=== PATIENT | female | born 1990 | race Caucasian/White ===

== ENCOUNTER 2019-10-12 15:14 | Emergency (ER) | payer OTHER ==
[~2019-10-12] VITALS: Ht 154.9 cm; Wt 99.8 kg
[2019-10-12] MEDS ORDERED: ACYCLOVIR400 MG PO (15:23)
[2019-10-12] MEDS ORDERED: PRENATA CHEWAB1 EACH PO (15:24)
[2019-10-12] MEDS ORDERED: TRIAMCINOLONE A80 GM TOP (16:14)
== END 2019-10-12 16:23 | disposition home or self-care (01) ==
LOC: ED 15:14
DX: O26.86 Pruritic urticarial papules and plaques of pregnancy (PUPPP) (principal); O99.333 Smoking (tobacco) complicating pregnancy, third trimester; F17.200 Nicotine dependence, unspecified, uncomplicated; Z3A.39 39 weeks gestation of pregnancy
CPT/HCPCS: 99282

== ENCOUNTER 2019-10-20 21:39 | Inpatient (IN) | payer OTHER ==
[~2019-10-20] VITALS: Ht 154.9 cm; Wt 120.2 kg
[~2019-10-20 21:39] MED LIST: ACYCLOVIR400 MG PO; PRENATA CHEWAB1 EACH PO; TRIAMCINOLONE A80 GM TOP
--- NOTE | 2019-10-21 13:06 | PR ---
[facility] [address] [facility] [place] [address] Signed PP Progress Notes Datetime Report Generated by CPN: 10/21/2019 13:06 SUBJECTIVE: [id number] Pain: Within Normal Limits Nausea/Vomiting: Denies Vital Signs: [id number] Vital Signs: Reviewed; Within Normal Limits Notable Details: PP Hgb/HCt = 12.5/37.3 EXAM: Ongoing Abdomen/Uterus: Normal Lochia: Normal Extremities: Normal IMPRESSION/PLAN/PROCEDURES: [id number] Impression: Normal Progression Plan: Continue Present Management Procedures: None Progress Notes: Doing well, without complaint. Signing Physician: Ezra Ford MD Copies: ~ *Electronically Signed* 10/21/19 1306 EZRA FORD MD PATIENT NAME: ROSITA REIS PROGRESS NOTE DATE OF : [birth year] PHYSICIAN: EZRA FORD MD RPT #: [id number] REPORT IS CONFIDENTIAL AND NOT TO BE RELEASED WITHOUT AUTHORIZATION
--- NOTE | 2019-10-22 12:22 | PR ---
[facility] [address] [facility] [place] [address] Signed PP Progress Notes Datetime Report Generated by CPN: 10/22/2019 12:22 SUBJECTIVE: [id number] Pain: Within Normal Limits Nausea/Vomiting: Denies Vital Signs: [id number] Vital Signs: Reviewed; Within Normal Limits Notable Details: PP Hgb/HCt = 12.5/37.3 EXAM: Ongoing Abdomen/Uterus: Normal Lochia: Normal Extremities: Normal IMPRESSION/PLAN/PROCEDURES: [id number] Impression: Normal Progression Plan: Discharge Procedures: None Progress Notes: Doing well, without complaint, ready to go home. Signing Physician: Ezra Ford MD Copies: ~ *Electronically Signed* 10/22/19 1222 EZRA FORD MD PATIENT NAME: ROSITA REIS PROGRESS NOTE DATE OF : 90 PHYSICIAN: EZRA FORD MD RPT #: [id number] REPORT IS CONFIDENTIAL AND NOT TO BE RELEASED WITHOUT AUTHORIZATION
== END 2019-10-22 13:03 | disposition home or self-care (01) | DRG 806 ==
LOC: FBC 21:50
PROVIDERS: ADMIT General Practice
PROC: 10E0XZZ Delivery of Products of Conception, External Approach (ICD-10-PCS; principal; 2019-10-20)
PROC: 0HQ9XZZ Repair Perineum Skin, External Approach (ICD-10-PCS; 2019-10-20)
PROC: 0UQMXZZ Repair Vulva, External Approach (ICD-10-PCS; 2019-10-20)
DX: O62.3 Precipitate labor (principal); O98.32 Other infections with a predominantly sexual mode of transmission complicating childbirth; Z37.0 Single live birth; Z3A.40 40 weeks gestation of pregnancy; O70.0 First degree perineal laceration during delivery; O71.82 Other specified trauma to perineum and vulva; O69.2XX0 Labor and delivery complicated by other cord entanglement, with compression, not applicable or unspecified; A60.09 Herpesviral infection of other urogenital tract
CPT/HCPCS: 36415; 85027; A9270

== ENCOUNTER 2020-09-08 08:30 | Day surgery (SDC) | payer OTHER ==
[~2020-09-08] VITALS: Ht 154.9 cm; Wt 97.7 kg
--- NOTE | 2020-09-08 11:02 | NUR ---
09/08/20 1102 Kori Morrison 1054-PATIENT ARRIVED TO PACU ON 6L MASK RN DOING JAW THRUST TO MAINTAIN OPEN AIRWAY. ORAL AIRWAY IN PLACE. SUTURES IN PLACE TO LEFT NECK SMALL AMT OF DRAINAGE TO LEFT EAR, CLEANED OUT. 1058-PATIENT AROUSING OPENING EYES ORAL AIRWAY REMOVED MAINTAINING OWN AIRWAY. PATIENT DENIES PAIN OR NAUSEA. 1100-PATIENT AWAKE HOB ELEVATED ON RA. 99% RR EVEN. DENIES PAIN OR NAUSEA. NO MORE DRAINAGE TO LEFT EAR.
--- NOTE | 2020-09-08 11:30 | NUR ---
PT IS BACK TO DS FROM PACU. SHE IS DENYING ANY PAIN. SHE WOULD LIKE CHOCOLATE PUDDING. TOLERATING SIPS OF WATER. CALL LIGHT WITHIN REACH. NO ADDITIONAL NEEDS AT THIS TIME.
[2020-09-08] MEDS ORDERED: HYDROCODON-ACE1 EA10 PO (12:11)
--- NOTE | 2020-09-08 12:35 | NUR ---
PT IS DOING WELL, NO PAIN. SHE INDICATES THAT SHE WOULD LIKE TO GO HOME. SHE IS EDUCATED THAT SHE HAS TO PEE AT LEAST 100MLS. SHE IS UP OOB TO THE BATHROOM. SHE IS ABLE TO AMBULATE HERSELF. SHE VOIDS 200MLS. SHE IS EDUCATED ON HOW TO BEST DRESS HERSELF AND TO OPEN HER CURTAIN WHEN READY.
--- NOTE | 2020-09-08 13:30 | NUR ---
MICHAEL 1245: PT IS GIVEN VERBAL DC INSTRUCTIONS, SHE VERBALIZES UNDERSTANDING. THERE ARE NO QUESTIONS AT THIS TIME. SHE IS TAKEN TO PERSONAL CAR VIA WC. SHE IS ABLE TO TRANSFER HERSELF FROM WC TO PERSONAL CAR.
--- NOTE | 2020-09-09 14:50 | PATH ---
[facility] [address] [place], [place] [address] Signed SPECIMEN(S): A LEFT PAROTID TUMOR SPECIMEN SOURCE: A. LEFT PAROTID TUMOR CLINICAL HISTORY: Left parotid tumor. 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 NAL:cml:C2NR MICROSCOPIC EXAMINATION: Histologic sections of all submitted blocks are examined by light microscopy. These findings, together with the gross examination, support the pathologic diagnosis. GROSS DESCRIPTION: The specimen, labeled "SF," and designated on the requisition "left parotid tumor," is received in formalin and consists of a portion of yellow-painter lobulated to pink-painter firm nodular mass (5 g, 2.9 x 2.6 x 1.4 cm). The specimen is inked blue and is serially sectioned to reveal a yellow-painter lobulated to white-painter firm cut surface. Vp Hr Diversity sections are submitted cassette A1-A4. AC (under the direct supervision of a pathologist) The Gross Description was prepared using a voice recognition system. The report was reviewed for accuracy; however, sound-alike word errors, addition and/or deletions may occur. If there is any question about this report, please contact Client Services. PERFORMING LABORATORY: The technical component was performed by [facility], [address] [place] [id number] (Service Station Console Operator: Hannah Villatoro MD; CLIA# [id number]). Professional interpretation was performed by [employer] [facility], [address] [address] (CLIA# [id number]). Diagnostician: Taylor Osborne MD Pathologist Electronically Signed 09/09/2020 PATIENT NAME: ROSITA REIS PATHOLOGY DATE OF : [birth year] REPORT #: [id number] PHYSICIAN: MIAN PATHOLOGY PCP: NOÉ CHAMBERS NP REPORT IS CONFIDENTIAL AND NOT TO BE RELEASED WITHOUT AUTHORIZATION [address] [address] Signed Copies: ~ PATIENT NAME: ROSITA REIS PATHOLOGY DATE OF : [birth year] REPORT #: [id number] PHYSICIAN: MIAN PATHOLOGY PCP: NOÉ CHAMBERS AGRICULTURAL SCIENTIST REPORT IS CONFIDENTIAL AND NOT TO BE RELEASED WITHOUT AUTHORIZATION
--- NOTE | 2020-09-15 10:41 | OR ---
[facility] [address] [place], [place] [address] Signed DATE OF OPERATION: 09/08/2020 SURGEON: Jaime Howe MD PREOPERATIVE DIAGNOSIS: Left parotid mass. POSTOPERATIVE DIAGNOSIS: Left parotid mass. PROCEDURE: Left superficial parotidectomy. ANESTHESIA: General orotracheal, HYDROPONICS GROWER Rodney. PREOPERATIVE HISTORY: Nicole is a 30-year-old young lady with a several month history of left parotid masses, in the tail inferiorly very hard. Normal facial nerve function. She is taken to the operating room for the above-mentioned procedures. PROCEDURE AND FINDINGS: After informed consent, the patient was taken to the operating room, placed in the supine position where general orotracheal anesthesia was induced. The patient and procedure were verified. Head and neck turned to the left, left face sterilely prepped and draped. The standard parotidectomy incision was marked. Left preauricular shortened incision was utilized, 1% lidocaine with epi was injected in the skin. Incision was made through skin, subcutaneous tissue. Subcutaneous flap was elevated anteriorly. The tumor was exposed. Very superficial tumor was then removed with sharp and blunt dissection, retaining a small cuff of tissue. Bleeding was controlled with needle point cautery. The tumor was removed. Facial nerve was not identified or sought. The wound was copiously lavaged with saline. Hemostasis verified. The wound was then closed with 4-0 interrupted Vicryl subcu, 5-0 running nylon on the skin. The skin was cleansed. Neosporin was applied. The patient was then awakened, extubated, and transported to recovery room in good condition. No complications. BLOOD LOSS: Minimal. SPECIMEN: Electronically Signed By: JAIME HOWE MD 09/15/20 1041 PATIENT NAME: NICOLE REIS OPERATIVE REPORT DATE OF : [birth year] REPORT #: [id number] PHYSICIAN: JAIME HOWE MD PCP: NOÉ CHAMBERS NP REPORT IS CONFIDENTIAL AND NOT TO BE RELEASED WITHOUT AUTHORIZATION [address] [address] Signed To pathology. DRAINS: No drains. Jaime Howe MD GC/LATISHA /[id number] Copies: ~ Electronically Signed By: JAIME HOWE MD 09/15/20 1041 PATIENT NAME: NICOLE REIS OPERATIVE REPORT DATE OF : [birth year] REPORT #: [id number] PHYSICIAN: JAIME HOWE MD PCP: NOÉ CHAMBERS NP REPORT IS CONFIDENTIAL AND NOT TO BE RELEASED WITHOUT AUTHORIZATION
== END 2020-09-08 12:45 | disposition home or self-care (01) ==
LOC: DS 08:30 → MS 10:00 → DS 10:00 → EDSTATUS 10:00 → DS 12:45
PROVIDERS: ATTEND Otolaryngology
PROC: 0CBC0ZZ Excision of Left Parotid Duct, Open Approach (ICD-10-PCS; principal; 2020-09-08 10:00)
DX: D11.0 Benign neoplasm of parotid gland (principal)
CPT/HCPCS: 00320; 88307; J0690; J1100; J1885; J2001; J2250; J2405; J2704; J3010; J7121